=== PATIENT | male | born 1955 | race Caucasian/White ===

== ENCOUNTER 2025-01-30 10:50 | Day surgery (SDC) | payer OTHER, SELFPAY ==
[2025-01-28 09:10] VITALS: BMI 28.9
[2025-01-28 09:44] LABS: % Basophils 0.6 % (0-2); % Immature Granulocytes 1.3 % (0-0.5); % Lymphocytes 30.8 % (20.5-51.1); % Neutrophils 57.3 % (42.2-75.2); Absolute Basophils 0.1 10^3/uL (0-0.2); Absolute Eosinophils 0.2 10^3/uL (0-0.7); Absolute Immature Granulocytes 0.1 10^3/uL (0-0.05); Absolute Lymphocytes 2.7 10^3/uL (1.2-3.4); Absolute Monocytes 0.7 10^3/uL (0.1-0.6); Hematocrit 39.4 % (39.0-52.0); Hemoglobin 13.1 g/dL (13.0-18.0); Mean Corp Hgb Conc. 33.2 g/dL (33.0-37.0); Mean Corpuscular Hgb 29.8 pg (27.0-31.0); Mean Corpuscular Volume 89.5 fL (80.0-94.0); Mean Platelet Volume 9.5 fL (7.4-10.4); Nucleated Red Blood Cells % 0 % (-); Platelet Count 257 10^3/uL (130-400); White Blood Cell Count 8.7 10^3/uL (4.8-10.8)
[2025-01-28 11:13] LABS: ALT (SGPT) 33 U/L (0-50); AST (SGOT) 24 U/L (17-59); Albumin 4.5 g/dl (3.5-5.0); Alkaline Phosphatase 63 U/L (38-126); Blood Urea Nitrogen 18 mg/dl (9-20); Calcium 9.9 mg/dl (8.4-10.2); Carbon Dioxide 23 mmol/L (22-30); Chloride 108 mmol/L (98-107); Estimated Creatinine Clearance 60 ml/min; Glucose 139 mg/dl (70-99); Potassium 4.7 mmol/L (3.5-5.1); Sodium 142 mmol/L (135-145); Total Bilirubin 0.5 mg/dl (0.2-1.3); Total Protein 7.1 g/dl (6.3-8.2); eGFR > 60.00
[2025-01-30] VITALS (9 sets, daily range): BP systolic 138–161; BP diastolic 61–82; BMI 28.2
[2025-01-30] MEDS: NSS 245 ML IV (13:09)
[2025-01-30 14:20] LABS: ACT-LR - POC 253 Seconds (116-155)
[2025-01-30 14:37] LABS: ACT-LR - POC 289 Seconds (116-155)
--- NOTE | 2025-01-30 18:28 | ITS.CL.PN ---
[employer] - Procedure Note
Procedure
Procedure Note:
CARDIAC CATHETERIZATION REPORT
Date of Procedure: 01/30/25
Referring: Dr. Wesley Nixon DO
Indication: chest pain, positive cardiac stress test
PROCEDURE(S)
1. left heart catheterization
2. coronary angiography
3. iFR ostial LCx
ACCESS: 6F right radial artery (closure: radial band)
CATHETERS
1. 6F AL1
2. 6F pigtail
3. 6F JL3.5
4. XB3.5 guide catheter
MODERATE SEDATION: 45 minutes of moderate sedation was utilized. An independent medical attendant was present to assist with and help manage the patient's level of consciousness and physiologic status.
HEMODYNAMIC DATA
LV 130/10 (EDP 14) mmHg
AO 135/60 (mean 92) mmHg
CORONARY ANGIOGRAPHY
Dominance: Right
LM: Large vessel with mild disease
LAD: Large vessel giving rise to a moderate caliber D1, small D2, and wrapping around the apex. There is mild nonobstructive disease.
LCx: Moderate caliber vessel giving rise to a small OM1 and medium caliber OM2. There is a focal 50% stenosis at the ostial circumflex and mild disease otherwise.
RCA: Moderate caliber vessel giving rise to a moderate caliber RPDA and 2 moderate caliber RPL branches. There are stents in the ostial to proximal vessel. The vessel is flush occluded at the ostium. Nonselective injection was performed to
definitively demonstrate lack of an antegrade microchannel. The entire vessel is supplied via robust collaterals from both the distal circumflex and LAD. There is a patent stent in the distal RPL branch. Contrast appears to fill retrograde back to
the mid RCA within the stented segment but the GAUGE CHECKER segment appears to be long.
iFR of ostial circumflex
An Omni wire was flushed and zeroed outside the body and then advanced to the distal. The wire introducer was removed and the catheter flushed with saline, after which pressure of the wire and guide were normalized. A solange wire was placed in the
LAD to allow for disengaged positioning of the guide catheter without losing access. The wire was advanced to the mid circumflex and iFR recorded at 0.95. iFR pullback was performed noting a focal pattern at the ostium of the circumflex. On return
to the left main, iFR appropriately normalized to ~1.0, confirming lack of wire drift. The procedure was repeated a second time this time with more disengage position of the guide catheter and iFR recorded at 0.93.
RADIATION: dose 1098 mGy; DAP 57.1 Gy*cm2; fluoroscopy time 24.3 min
CONCLUSIONS
1. Coronary artery disease as described with RCA GAUGE CHECKER with robust left to right collaterals and iFR negative ostial stenosis of the circumflex
2. Mildly elevated LV filling pressure and no aortic stenosis
RECOMMENDATIONS
1. Aggressive secondary prevention of coronary artery disease
Copy to: Dr. Wesley Nixon DO (director of elementary education); [ ] (PCP)
Signed: Jatin Orellana MD, PhD
== END 2025-01-30 18:55 | disposition home or self-care (01) ==
LOC: CATH 10:50
PROVIDERS: ATTENDING PHYSICIAN Student in an Organized Health Care Education/Training Program; FAMILY PHYSICIAN Student in an Organized Health Care Education/Training Program; OTHER PHYSICIAN Internal Medicine Cardiovascular Disease
DX: I25.10 Atherosclerotic heart disease of native coronary artery without angina pectoris (principal); I10 Essential (primary) hypertension; E78.5 Hyperlipidemia, unspecified; I48.91 Unspecified atrial fibrillation; I70.213 Atherosclerosis of native arteries of extremities with intermittent claudication, bilateral legs; I35.0 Nonrheumatic aortic (valve) stenosis; I25.2 Old myocardial infarction; Z79.01 Long term (current) use of anticoagulants; Z79.899 Other long term (current) drug therapy; Z90.49 Acquired absence of other specified parts of digestive tract; Z95.5 Presence of coronary angioplasty implant and graft; Z87.891 Personal history of nicotine dependence; D64.9 Anemia, unspecified; R73.03 Prediabetes; R42 Dizziness and giddiness; M48.00 Spinal stenosis, site unspecified; K21.9 Gastro-esophageal reflux disease without esophagitis; G47.00 Insomnia, unspecified
CPT/HCPCS: 99152; 99153; 93799; 36415; 80053; 85025; 85347; 93005; 93458; C1769; C1887; C1894; Q9967